=== PATIENT | male | born 1950 | race Caucasian/White ===

== ENCOUNTER 2021-03-27 04:53 | Day surgery (SDC) | payer MEDICARE ==
[2021-03-25 13:34] VITALS: BMI 23.2
[~2021-03-27 04:53] MED LIST: ACETAMINOPHEN 325 MG TABLET (FP) PO PRN
[2021-03-27] MEDS ORDERED: TETRACAINE 0.5% OPHTH SOLN 2 ML BOTTLE ONE (09:58)
[2021-03-27] MEDS: OFLOXACIN 0.3% OPHTHALMIC SOLUTION 5 ML BOTTLE OP SCH ×3 (10:15→10:25)
[2021-03-27] MEDS ORDERED: OFLOXACIN 0.3% OPHTHALMIC SOLUTION 5 ML BOTTLE ONE (10:17)
[2021-03-27] MEDS ORDERED: TOBRAMYCIN/DEXAMETHASONE OPHTH. OINTMENT 1 TUBE ONE (10:57)
[2021-03-27] MEDS ORDERED: TOBRA 0.3%/DEXAMETH 0.1% OPHTHALMIC SUSP 2.5 ML BTL ONE (10:57)
[2021-03-27] MEDS ORDERED: OPTHALMIC ONE (10:58)
[2021-03-27] MEDS ORDERED: LIDOCAINE 3.5% ONE (10:58)
[2021-03-27] MEDS ORDERED: POVIDONE-IODINE 5% OPHTHALMIC PREP 30 ML SOLUTION ONE (12:24)
[2021-03-27] MEDS ORDERED: POVIDONE-IODINE 5% OPHTHALMIC PREP 30 ML SOLUTION OS ONE (12:30)
[2021-03-27] MEDS ORDERED: LIDOCAINE 1%/EPI 1:100000 (20 ML MULTI DOSE VIAL) INF ONE ×2 (12:35)
[2021-03-27] MEDS ORDERED: TOBRAMYCIN/DEXAMETHASONE OPHTH. OINTMENT 1 TUBE OS ONE (12:47)
[2021-03-27 13:49] VITALS: BP 139/82; PULSE 55; TEMP 98.4
== END 2021-03-27 13:50 | disposition home or self-care (01) ==
LOC: JASU-SURG 04:53
PROVIDERS: ATTEND Ophthalmology
PROC: 08BTXZX Excision of Left Conjunctiva, External Approach, Diagnostic (ICD-10-PCS; principal; 2021-03-27 12:00)
DX: H11.442 Conjunctival cysts, left eye (principal)
CPT/HCPCS: 88304-TC

== ENCOUNTER 2021-08-21 08:49 | Inpatient (IN) | payer MEDICARE, OTHER ==
[2021-08-21] MEDS ORDERED: morphine CARPU-JECT 4 MG/1 ML DISP.SYRIN IVPUSH ONE (10:57)
[2021-08-21] MEDS ORDERED: SODIUM CHLORIDE 0.9% 500 ML INFUS.BAG IV ONE (10:57)
[2021-08-21] MEDS ORDERED: morphine SULFATE 4 MG/ML VIAL ONE (11:35)
[2021-08-21 11:48] LABS: BASO % 0.1 % (0-2.0); HEMATOCRIT 39.9 % (35.4-49); HEMOGLOBIN 13.7 GM/dL (11.7-16.9); LYMPH % 9.5 % (8-40); MCH 29.2 pg (25.7-33.7); MCHC 34.3 g/dl (32.0-35.9); MEAN PLT VOLUME 6.5 fl (7.5-11.1); MONO % 7.9 % (3.8-10.2); NEUT % 82.5 % (42.8-82.8); PLATELET COUNT 252 10^3/uL (134-434); RDW 14.1 % (11.9-15.9); WHITE BLOOD COUNT 8.4 K/mm3 (4.0-10.0)
[2021-08-21 12:16] LABS: CALCIUM 8.9 mg/dL (8.5-10.1)
[2021-08-21 12:17] LABS: BLOOD UREA NITROGEN 13.3 mg/dL (7-18); INR 1.11 (0.83-1.09)
[2021-08-21 12:19] LABS: CREATININE 0.7 mg/dL (0.55-1.3)
[2021-08-21 12:21] LABS: BILIRUBIN,TOTAL 0.7 mg/dL (0.2-1)
[2021-08-21] MEDS ORDERED: morphine CARPU-JECT 2 MG/1 ML DISP.SYRIN IVPB ONE (14:28)
[2021-08-21 14:53] LABS: PH,URINE 6.5 (5.0-8.0); URINE APPEARANCE CLEAR; URINE BILIRUBIN NEGATIVE (NEGATIVE); URINE COLOR YELLOW; URINE GLUCOSE (UA) NEGATIVE (NEGATIVE); URINE KETONE 1+ (NEGATIVE); URINE LEUK ESTERASE NEGATIVE (NEGATIVE); URINE NITRITE NEGATIVE (NEGATIVE); URINE PROTEIN NEGATIVE (NEGATIVE); URINE UROBILINOGEN 0.2 mg/dL (0.2-1.0)
[2021-08-21] MEDS ORDERED: ENOXAPARIN NA (PORCINE) 40 MG/0.4 ML DISP.SYRIN SQ SCH (15:30)
[2021-08-21] MEDS ORDERED: LACTATED RINGERS SOLUTION 1,000 ML IV SCH (15:30)
[2021-08-21] MEDS ORDERED: HEPARIN NA (PORCINE) 5,000 UNITS/ML 1ML VIAL SQ SCH (15:45)
[2021-08-21] MEDS ORDERED: ceFAZolin SODIUM 1 GM VIAL ONE (19:53)
[2021-08-21] MEDS: CEFAZOLIN 2 GM in DEXTROSE 5%-WATER - 50 ML IVPB SCH (20:10)
[2021-08-22] MEDS ORDERED: BUPIVACAINE HCL/PF 0.5% (5MG/ML) 10 ML VIAL IJ ONE
[2021-08-22 02:04] VITALS: BMI 23.1
[2021-08-22 08:56] LABS: INR 1.17 (0.83-1.09); PROTHROMBIN TIME (PATIENT) 13.1 SEC (9.7-13.0)
[2021-08-22 08:57] LABS: BASO % 0.3 % (0-2.0); EOS % 0.4 % (0-4.5); HEMATOCRIT 42.3 % (35.4-49); HEMOGLOBIN 14.5 GM/dL (11.7-16.9); LYMPH % 12.3 % (8-40); MCH 29.2 pg (25.7-33.7); MCHC 34.2 g/dl (32.0-35.9); MEAN CELL VOLUME 85.3 fl (80-96); MEAN PLT VOLUME 7.1 fl (7.5-11.1); MONO % 11.5 % (3.8-10.2); NEUT % 75.5 % (42.8-82.8); PLATELET COUNT 243 10^3/uL (134-434); RBC 4.95 M/mm3 (4.00-5.60); RDW 14.2 % (11.9-15.9); WHITE BLOOD COUNT 9.4 K/mm3 (4.0-10.0)
[2021-08-22] MEDS: CEFAZOLIN 2 GM in DEXTROSE 5%-WATER - 50 ML IVPB SCH (09:00)
[2021-08-22] MEDS ORDERED: PROMETHAZINE HCL 25 MG/1 ML VIAL IVPUSH PRN ×2 (09:04→12:45)
[2021-08-22] MEDS ORDERED: ONDANSETRON 4 MG/2 ML VIAL IVPUSH PRN ×2 (09:04→12:45)
[2021-08-22] MEDS ORDERED: SODIUM CHLORIDE 1,000 ML IV SCH (09:15)
[2021-08-22 09:16] LABS: CALCIUM 8.6 mg/dL (8.5-10.1)
[2021-08-22 09:17] LABS: ALBUMIN 3.8 g/dl (3.4-5.0); BLOOD UREA NITROGEN 11.6 mg/dL (7-18); MAGNESIUM 2.2 mg/dL (1.8-2.4)
[2021-08-22] MEDS ORDERED: PROPOFOL 20 ML ONE ×2 (09:17→11:02)
[2021-08-22] MEDS ORDERED: ROCURONIUM BROMIDE 50 MG/5 ML SYRINGE ONE (09:17)
[2021-08-22] MEDS ORDERED: MIDAZOLAM HCL 2 MG/2 ML SINGLE DOSE VIAL ONE (09:18)
[2021-08-22 09:20] LABS: CREATININE 0.8 mg/dL (0.55-1.3); PHOSPHOROUS 2.4 mg/dL (2.5-4.9)
[2021-08-22 09:21] LABS: TOT PROT 7.7 g/dl (6.4-8.2)
[2021-08-22] MEDS ORDERED: GLYCOPYRROLATE 0.2 MG/1 ML VIAL ONE ×2 (09:21→11:00)
[2021-08-22] MEDS ORDERED: LIDOCAINE HCL/PF 2% SDV 5ML VIAL ONE (09:21)
[2021-08-22] MEDS ORDERED: ceFAZolin SODIUM 1 GM VIAL ONE (09:24)
[2021-08-22] MEDS ORDERED: ceFAZolin SODIUM 1 GM VIAL IVPB ONE (09:47)
[2021-08-22] MEDS ORDERED: DEXAMETHASONE SOD PHOSPHATE 4 MG/1 ML VIAL ONE (09:49)
[2021-08-22] MEDS ORDERED: NAPH,MB-DB/K PH,MBDB POWDER PACKET PO SCH (10:00)
[2021-08-22] MEDS ORDERED: KETOROLAC TROMETHAMINE 30 MG/1 ML VIAL ONE (10:46)
[2021-08-22] MEDS ORDERED: NEOSTIGMINE METHYLSULFATE 0.5 MG/ML - 10 ML MDV ONE (11:00)
[2021-08-22] MEDS ORDERED: BUPIVACAINE HCL/PF 0.5% (5 MG/ML) 30 ML VIAL IJ ONE (11:30)
[2021-08-22] MEDS ORDERED: oxyCODONE HCL 5 MG TABLET PO PRN ×2 (12:45)
[2021-08-22] MEDS ORDERED: KETOROLAC TROMETHAMINE 15 MG/ML VIAL IVPUSH PRN (12:45)
[2021-08-22] MEDS ORDERED: ACETAMINOPHEN 500 MG TABLET (FP) PO PRN (12:45)
[2021-08-22] MEDS: SODIUM CHLORIDE 1,000 ML IV SCH ×2 (13:45→19:58)
[2021-08-22] MEDS: ENOXAPARIN NA (PORCINE) 40 MG/0.4 ML DISP.SYRIN SQ SCH (14:55)
[2021-08-22] MEDS: NAPH,MB-DB/K PH,MBDB POWDER PACKET PO SCH (21:33)
[2021-08-22] MEDS: ATORVASTATIN CA 20 MG TABLET (FP) PO SCH (21:33)
[2021-08-23 10:30] LABS: BASO % 0.3 % (0-2.0); EOS % 0.6 % (0-4.5); HEMATOCRIT 34.6 % (35.4-49); HEMOGLOBIN 11.8 GM/dL (11.7-16.9); LYMPH % 21.7 % (8-40); MCH 29.5 pg (25.7-33.7); MEAN CELL VOLUME 86.9 fl (80-96); MEAN PLT VOLUME 7.2 fl (7.5-11.1); MONO % 14.6 % (3.8-10.2); NEUT % 62.8 % (42.8-82.8); PLATELET COUNT 218 10^3/uL (134-434); RBC 3.98 M/mm3 (4.00-5.60); RDW 14.1 % (11.9-15.9); WHITE BLOOD COUNT 6.5 K/mm3 (4.0-10.0)
[2021-08-23] MEDS: ENOXAPARIN NA (PORCINE) 40 MG/0.4 ML DISP.SYRIN SQ SCH (10:37)
[2021-08-23] MEDS: NAPH,MB-DB/K PH,MBDB POWDER PACKET PO SCH ×3 (10:39→21:24)
[2021-08-23 10:47] LABS: BLOOD UREA NITROGEN 19.8 mg/dL (7-18); CALCIUM 7.6 mg/dL (8.5-10.1); MAGNESIUM 2.3 mg/dL (1.8-2.4)
[2021-08-23 10:50] LABS: CREATININE 0.9 mg/dL (0.55-1.3); PHOSPHOROUS 2.4 mg/dL (2.5-4.9)
[2021-08-23 10:51] LABS: BILIRUBIN,TOTAL 0.8 mg/dL (0.2-1); TOT PROT 5.9 g/dl (6.4-8.2)
[2021-08-23 10:58] LABS: ALBUMIN 2.7 g/dl (3.4-5.0)
[2021-08-23] MEDS: SODIUM CHLORIDE 1,000 ML IV SCH (20:35)
[2021-08-23] MEDS: ATORVASTATIN CA 20 MG TABLET (FP) PO SCH (21:24)
[2021-08-24] MEDS: NAPH,MB-DB/K PH,MBDB POWDER PACKET PO SCH ×2 (10:15→10:16)
[2021-08-24] MEDS: ENOXAPARIN NA (PORCINE) 40 MG/0.4 ML DISP.SYRIN SQ SCH (10:16)
[2021-08-24 10:23] LABS: HEMATOCRIT 39.8 % (35.4-49); HEMOGLOBIN 13.3 GM/dL (11.7-16.9); MCH 28.8 pg (25.7-33.7); MCHC 33.3 g/dl (32.0-35.9); MEAN CELL VOLUME 86.4 fl (80-96); PLATELET COUNT 252 10^3/uL (134-434); RBC 4.61 M/mm3 (4.00-5.60); RDW 14.1 % (11.9-15.9); WHITE BLOOD COUNT 6.3 K/mm3 (4.0-10.0)
[2021-08-24 10:51] LABS: ALBUMIN 3.1 g/dl (3.4-5.0); BLOOD UREA NITROGEN 11.5 mg/dL (7-18); MAGNESIUM 2.3 mg/dL (1.8-2.4)
[2021-08-24 10:54] LABS: CREATININE 0.7 mg/dL (0.55-1.3); PHOSPHOROUS 3.1 mg/dL (2.5-4.9)
[2021-08-24 10:55] LABS: TOT PROT 6.7 g/dl (6.4-8.2)
[2021-08-24 10:56] LABS: BILIRUBIN,TOTAL 0.9 mg/dL (0.2-1)
[2021-08-24 13:43] VITALS: BP 141/70; PULSE 57; TEMP 98.5
== END 2021-08-24 16:36 | disposition home or self-care (01) | DRG 419 ==
LOC: JER 08:49 → JERBED 15:00 → J6S 08-22 00:39
PROVIDERS: ADMIT Internal Medicine; ATTEND Internal Medicine
PROC: 0FT44ZZ Resection of Gallbladder, Percutaneous Endoscopic Approach (ICD-10-PCS; principal; 2021-08-22 09:00)
DX: K80.12 Calculus of gallbladder with acute and chronic cholecystitis without obstruction (principal); E78.5 Hyperlipidemia, unspecified; R11.2 Nausea with vomiting, unspecified
CPT/HCPCS: 36415; 71046-TC-FY; 74177-TC; 76705-TC; 80048; 80053; 81003; 83690; 83735; 84100; 85025; 85027; 85610; 85730; 86850; 86900; 86901; 87086; 88304-TC; 93005; 93010; 94760; 97116-GP; 97161-GP; 99285-25; C9803; Q9967; U0003; U0005

== ENCOUNTER 2021-11-27 05:07 | Day surgery (SDC) | payer MEDICARE, OTHER ==
[2021-11-25 14:12] VITALS: BMI 23.2
[~2021-11-27 05:07] MED LIST changes: +CYCLOPENTOLATE HCL 1% OPHTH SOLN 2 ML BOTTLE OP SCH; +KETOROLAC TROMETHAMINE 0.5% EYE DROP 1 DROP DROPS OP SCH; +OFLOXACIN 0.3% OPHTHALMIC SOLUTION 5 ML BOTTLE OP SCH; +PHENYLEPHRINE 2.5% OPHTH SOLN 15 ML BOTTLE OP SCH; +TROPICAMIDE 1% OPHTH SOLN 15 ML BOTTLE OP SCH
[2021-11-27] MEDS ORDERED: CHONDROITIN SU A/HYALUR SOD 1 KIT ONE (07:09)
[2021-11-27] MEDS ORDERED: KETOROLAC TROMETHAMINE 0.5% EYE DROP 1 DROP DROPS OD ONE ×3 (07:10→07:20)
[2021-11-27] MEDS ORDERED: CYCLOPENTOLATE HCL 1% OPHTH SOLN 2 ML BOTTLE OD ONE ×3 (07:10→07:20)
[2021-11-27] MEDS ORDERED: PHENYLEPHRINE 2.5% OPHTH SOLN 15 ML BOTTLE OD ONE ×3 (07:10→07:20)
[2021-11-27] MEDS ORDERED: TROPICAMIDE 1% OPHTH SOLN 15 ML BOTTLE OD ONE ×3 (07:10→07:20)
[2021-11-27] MEDS ORDERED: OFLOXACIN 0.3% OPHTHALMIC SOLUTION 5 ML BOTTLE OD ONE ×3 (07:10→07:20)
[2021-11-27] MEDS ORDERED: KETOROLAC TROMETHAMINE 0.5% EYE DROP 1 DROP DROPS ONE (07:13)
[2021-11-27] MEDS ORDERED: CYCLOPENTOLATE HCL 1% OPHTH SOLN 2 ML BOTTLE ONE (07:14)
[2021-11-27] MEDS ORDERED: PHENYLEPHRINE 2.5% OPTHALMIC DROP BOTTLE ONE (07:14)
[2021-11-27] MEDS ORDERED: TROPICAMIDE 1% OPHTH SOLN 15 ML BOTTLE ONE (07:14)
[2021-11-27] MEDS ORDERED: EPINEPHrine/PF 1 MG/1 ML (1:1,000) AMPULE ONE (07:18)
[2021-11-27] MEDS ORDERED: POVIDONE-IODINE 5% OPHTHALMIC PREP 30 ML SOLUTION ONE (07:19)
[2021-11-27] MEDS ORDERED: TETRACAINE 0.5% OPHTH SOLN 2 ML BOTTLE ONE (07:19)
[2021-11-27] MEDS ORDERED: LIDOCAINE HCL/PF 1% SDV 5ML VIAL ONE (07:19)
[2021-11-27] MEDS ORDERED: TETRACAINE 0.5% OPHTH SOLN 2 ML BOTTLE OD ONE (09:00)
[2021-11-27] MEDS ORDERED: MIDAZOLAM HCL 2 MG/2 ML SINGLE DOSE VIAL ONE (09:01)
[2021-11-27] MEDS ORDERED: POVIDONE-IODINE 5% OPHTHALMIC PREP 30 ML SOLUTION OD ONE (09:10)
[2021-11-27] MEDS ORDERED: LIDOCAINE HCL 1% PRESERVATIVE FREE - 30ML VIAL IO ONE ×2 (09:13)
[2021-11-27] MEDS ORDERED: BSS (NA/CA/MG/K) BALANCED SALT SOLUTION OPHTH SOLN 15 ML BOTTLE OD ONE ×2 (09:13)
[2021-11-27] MEDS ORDERED: EPINEPHrine/PF 1 MG/1 ML (1:1,000) AMPULE SQ ONE (09:20)
[2021-11-27] MEDS ORDERED: CHONDROITIN SU A/HYALUR SOD 1 KIT IO ONE (09:20)
[2021-11-27] MEDS ORDERED: EPINEPHrine 1:1,000 1,000 MCG/ML ML SQ ONE (09:20)
[2021-11-27 11:16] VITALS: BP 134/64; PULSE 58; TEMP 97.8
== END 2021-11-27 10:40 | disposition home or self-care (01) ==
LOC: JASU-SURG 05:07
PROVIDERS: ATTEND Ophthalmology
PROC: 08RJ3JZ Replacement of Right Lens with Synthetic Substitute, Percutaneous Approach (ICD-10-PCS; principal; 2021-11-27 09:00)
DX: H26.9 Unspecified cataract (principal)

== ENCOUNTER 2021-12-11 04:32 | Day surgery (SDC) | payer MEDICARE, OTHER ==
[2021-12-09 10:43] VITALS: BMI 23.2
[~2021-12-11 04:32] MED LIST changes: -CYCLOPENTOLATE HCL 1% OPHTH SOLN 2 ML BOTTLE OP SCH; -KETOROLAC TROMETHAMINE 0.5% EYE DROP 1 DROP DROPS OP SCH; -OFLOXACIN 0.3% OPHTHALMIC SOLUTION 5 ML BOTTLE OP SCH; -PHENYLEPHRINE 2.5% OPHTH SOLN 15 ML BOTTLE OP SCH; -TROPICAMIDE 1% OPHTH SOLN 15 ML BOTTLE OP SCH
[2021-12-11] MEDS ORDERED: BUPIVACAINE HCL/PF 0.75% 10 ML VIAL ONE (07:23)
[2021-12-11] MEDS ORDERED: LIDOCAINE HCL/PF 2% SDV 5ML VIAL ONE (07:23)
[2021-12-11] MEDS ORDERED: LIDOCAINE HCL/PF 1% SDV 5ML VIAL ONE (07:23)
[2021-12-11] MEDS ORDERED: EPINEPHrine/PF 1 MG/1 ML (1:1,000) AMPULE ONE (07:23)
[2021-12-11] MEDS ORDERED: POVIDONE-IODINE 5% OPHTHALMIC PREP 30 ML SOLUTION ONE (07:24)
[2021-12-11] MEDS ORDERED: CYCLOPENTOLATE HCL 1% OPHTH SOLN 2 ML BOTTLE ONE (07:54)
[2021-12-11] MEDS ORDERED: TROPICAMIDE 1% OPHTH SOLN 15 ML BOTTLE ONE (07:54)
[2021-12-11] MEDS ORDERED: KETOROLAC TROMETHAMINE 0.5% EYE DROP 1 DROP DROPS ONE (07:54)
[2021-12-11] MEDS ORDERED: PHENYLEPHRINE 2.5% OPTHALMIC DROP BOTTLE ONE (07:55)
[2021-12-11] MEDS ORDERED: OFLOXACIN 0.3% OPHTHALMIC SOLUTION 5 ML BOTTLE ONE (07:55)
[2021-12-11] MEDS: KETOROLAC TROMETHAMINE 0.5% EYE DROP 1 DROP DROPS OP SCH ×3 (08:09→08:27)
[2021-12-11] MEDS: CYCLOPENTOLATE HCL 1% OPHTH SOLN 2 ML BOTTLE OP SCH ×3 (08:09→08:26)
[2021-12-11] MEDS: PHENYLEPHRINE 2.5% OPHTH SOLN 15 ML BOTTLE OP SCH ×3 (08:10→08:27)
[2021-12-11] MEDS: TROPICAMIDE 1% OPHTH SOLN 15 ML BOTTLE OP SCH ×3 (08:10→08:27)
[2021-12-11] MEDS: OFLOXACIN 0.3% OPHTHALMIC SOLUTION 5 ML BOTTLE OP SCH ×3 (08:10→08:27)
[2021-12-11] MEDS ORDERED: ONDANSETRON 4 MG/2 ML VIAL IVPUSH PRN (09:41)
[2021-12-11] MEDS ORDERED: LACTATED RINGERS SOLUTION 1,000 ML IV SCH (09:45)
[2021-12-11] MEDS ORDERED: PROPOFOL 20 ML ONE (10:00)
[2021-12-11] MEDS ORDERED: LIDOCAINE HCL/PF 2% SDV 5ML VIAL INF ONE ×2 (10:05)
[2021-12-11] MEDS ORDERED: BUPIVACAINE HCL/PF 0.75% 10 ML VIAL NR ONE ×2 (10:05)
[2021-12-11] MEDS ORDERED: LIDOCAINE HCL 1% PRESERVATIVE FREE - 30ML VIAL IO ONE ×2 (10:06→10:15)
[2021-12-11] MEDS ORDERED: POVIDONE-IODINE 5% OPHTHALMIC PREP 30 ML SOLUTION OS ONE (10:08)
[2021-12-11] MEDS ORDERED: BSS (NA/CA/MG/K) BALANCED SALT SOLUTION OPHTH SOLN 15 ML BOTTLE OS ONE ×2 (10:15→10:16)
[2021-12-11] MEDS ORDERED: CHONDROITIN SU A/HYALUR SOD 1 KIT IO ONE ×3 (10:16→10:17)
[2021-12-11] MEDS ORDERED: EPINEPHrine/PF 1 MG/1 ML (1:1,000) AMPULE SQ ONE (10:21)
[2021-12-11 10:58] VITALS: TEMP 97.7
[2021-12-11 11:36] VITALS: BP 139/75; PULSE 63
== END 2021-12-11 11:25 | disposition home or self-care (01) ==
LOC: JASU-SURG 04:32
PROVIDERS: ATTEND Ophthalmology
PROC: 08RK3JZ Replacement of Left Lens with Synthetic Substitute, Percutaneous Approach (ICD-10-PCS; principal; 2021-12-11 10:00)
DX: H26.9 Unspecified cataract (principal)